=== PATIENT | female | born 1940 | race Caucasian/White ===

== ENCOUNTER 2019-08-04 10:00 | Outpatient (RCR) | payer OTHER, SELFPAY ==
--- NOTE | 2019-04-28 08:50 | PCCPR ---
Isaura called this morning, still not feeling well, hopes to return Sunday.
--- NOTE | 2019-04-30 16:46 | PC.NURSE ---
Isaura called in this morning & states she still isn't feeling well. Has 4 more days of antibiotics so is going to try to recover over the weekend and restart Sunday.
--- NOTE | 2019-05-05 07:32 | PCCPR ---
Isaura feeling better today but unable to attend due to inclement weather.
--- NOTE | 2019-05-07 08:45 | PC.NURSE ---
Absent r/t weather. Isaura called in & states shes feeling better but it is too cold for her to get out today. Most likely wont be here tomorrow either.
--- NOTE | 2019-05-26 08:49 | PCCPR ---
Tierra Delarosa called early this am states due to the weather cold and windy she will not make it in today.
--- NOTE | 2019-06-04 13:40 | PCCPR ---
Absent today, not feeling well.
--- NOTE | 2019-06-05 08:42 | PCCPR ---
Tierra Delarosa called verbalized concern for the windy weather today. She will not be in.
--- NOTE | 2019-06-11 09:09 | PCCPR ---
Tierra Delarosa called early today states will not be in due to the cold weather.
--- NOTE | 2019-06-11 10:00 | PCCPR ---
Absent due to cold weather Isaura called states with the cold weather she will not be in.
--- NOTE | 2019-06-16 13:44 | PCCPR ---
Isaura absent today for MD appt. Plans to return .
--- NOTE | 2019-06-23 08:06 | PCCPR ---
Absent-not feeling well
--- NOTE | 2019-07-07 08:46 | PCCPR ---
Absent today, not feeling well.
--- NOTE | 2019-07-14 09:57 | PCCPR ---
Absent Called off due to cold weather.
--- NOTE | 2019-07-21 08:49 | PCCPR ---
Absent-coughing & wheezing
--- NOTE | 2019-07-24 08:29 | PCCPR ---
chelsea Delarosa states her breathing is very difficult with the humidity up today.
--- NOTE | 2019-08-06 08:46 | PCCPR ---
Absent Isaura called states she is having some body aches and not feeling well.
--- NOTE | 2019-08-11 08:49 | PCCPR ---
pt [facility] today due to having an MD apt. Gave her the option to call back this afternoon, if she would like a different class time.
--- NOTE | 2019-08-18 08:55 | PCCPR ---
absent r/t weather- rainy & humid
--- NOTE | 2019-08-21 08:10 | PCCPR ---
Absent today due to cold weather.
== END 2019-08-04 23:59 | disposition home or self-care (01) ==
LOC: ANHCPREHAB 10:00
PROVIDERS: Visit Provider Internal Medicine Pulmonary Disease
DX: J44.9 Chronic obstructive pulmonary disease, unspecified (principal); J84.10 Pulmonary fibrosis, unspecified
CPT/HCPCS: 93798; 97150; G0424

== ENCOUNTER 2019-09-04 10:00 | Outpatient (RCR) | payer OTHER, SELFPAY | END 2019-09-04 11:47 | disposition home or self-care (01) | LOC: ANHCPREHAB 10:00 | PROVIDERS: PCP Family Medicine; Visit Provider Internal Medicine Pulmonary Disease | DX: J44.9 Chronic obstructive pulmonary disease, unspecified (principal); J84.112 Idiopathic pulmonary fibrosis | CPT/HCPCS: 97150; G0424 ==